=== PATIENT | male | born 1940 | race Caucasian/White ===

== ENCOUNTER → 2019-01-26 | Outpatient (CLI) | payer OTHER ==
--- NOTE | 2019-01-26 09:18 | PCVCIMAG ---
APPROVED REPORT Study performed: 01/26/2019 07:55:03 EXAM: Comprehensive 2D, Doppler, and color-flow Echocardiogram Patient Location: Echo lab Room #: 3Status: routine BSA: 1.89 HR: 52 bpmBP: 120/64 mmHg Rhythm: NSR Other Information Study Quality: Good Indications Near Syncope SVT 2D Dimensions IVSd: 9.84 (7-11mm)LVOT Diam: 20.00 (18-24mm) LVDd: 39.38 mm PWd: 10.55 (7-11mm)Ascending Ao: 31.08 (22-36mm) LVDs: 28.26 (25-40mm) Left Atrium: 37.40 (27-40mm) Aortic Root: 30.09 mm LV Single Plane 4CH: 49.87 % LV Single Plane 2CH: 54.61 % Biplane EF: 53.3 % Volumes Left Atrial Volume (Systole) Single Plane 4CH: 50.03 mLSingle Plane 2CH: 65.25 mL LA ESV Index: 31.00 mL/m2 Aortic Valve AoV Peak Bebeto.: 1.13 m/s AO Peak Gr.: 5.13 mmHgLVOT Max P.40 mmHg LVOT Max V: 0.92 m/s NISHA Vmax: 2.67 cm2 Mitral Valve E/A Ratio: 1.3 MV Decel. Time: 254.07 ms MV E Max Bebeto.: 0.64 m/s MV A Bebeto.: 0.50 m/s IVRT: 73.82 ms TDI E/Lateral E': 8.00E/Medial E': 9.14 Medial E' Bebeto.: 0.07 m/s Lateral E' Bebeto.: 0.08 m/s Pulmonary Valve PV Peak Bebeto.: 0.79 m/sPV Peak Gr.: 2.50 mmHg Pulmonary Vein P Vein S: 0.62 m/sP Vein A: 0.22 m/s P Vein D: 0.47 m/sP Vein A Dur.: 101.5 msec P Vein S/D Ratio: 1.32 Tricuspid Valve TR Peak Bebeto.: 2.29 m/sRAP Estimate: 7.00 mmHg TR Peak Gr.: 20.94 mmHg PA Pressure: 28.00 mmHg Left Ventricle The left ventricle is normal size. There is normal LV segmental wall motion. There is normal left ventricular wall thickness. Left ventricular systolic function is normal. The left ventricular ejection fraction is within the normal range. LVEF is 50-55%. The left ventricular diastolic function is normal. Right Ventricle The right ventricle is normal size. The right ventricular systolic function is normal. Atria The left atrium size is normal. Right atrium is dilated. Aortic Valve The aortic valve is mildly sclerotic Trace aortic regurgitation. There is no aortic valvular stenosis. Mitral Valve The mitral valve is normal in structure. Mild mitral regurgitation. No evidence of mitral valve stenosis. Tricuspid Valve The tricuspid valve is normal in structure. Mild tricuspid regurgitation. Pulmonary artery pressure is 28 mmHg. Pulmonic Valve The pulmonary valve is normal in structure. Trace to mild pulmonic regurgitation. Great Vessels The aortic root is normal in size. IVC is normal in size and collapses >50% with inspiration. Pericardium There is no pericardial effusion. <Conclusion> Left ventricular systolic function is normal. There is normal LV segmental wall motion. LVEF is 50-55%. Normal diastolic function Right atrium is dilated. The aortic valve is mildly sclerotic, no stenosis. Trace aortic regurgitation. The mitral valve is normal in structure. Mild mitral regurgitation. Mild tricuspid regurgitation. Pulmonary artery pressure of 28 mmHg. There is no pericardial effusion.
== END | disposition home or self-care (01) ==
LOC: PCVCIMAG 08:00
PROVIDERS: ATTEND Internal Medicine Cardiovascular Disease
DX: I08.1 Rheumatic disorders of both mitral and tricuspid valves (principal); R55 Syncope and collapse; E78.5 Hyperlipidemia, unspecified; K51.019 Ulcerative (chronic) pancolitis with unspecified complications
CPT/HCPCS: 93306

== ENCOUNTER → 2019-08-25 | Outpatient (CLI) | payer OTHER ==
[~2019-08-25] MED LIST: REGADENOSON 0.4 MG/5 ML DISP.SYRIN. IV ONE
--- NOTE | 2019-08-26 09:48 | PCVCIMAG ---
APPROVED REPORT Imaging Protocol: Rest Tc-99m/Stress Tc-99m 1 day Study performed: 08/25/2019 13:35:58 Indication: Chest pain, Near Syncope, SVT Patient Location: Out-Patient Stress Nurse: Diana Schulte RN, Luisa Andrade RN HI Tech:Krystal LUIS EDUARDO WagnerMT Ht: 5 ft 10 in Wt: 158 lbs BSA: 1.89 m2 HR: 66 bpm BP: 184/84 mmHg BMI: 22.66 Rhythm: Sinus Rhythm, Incomplete RBBB Medical History Medical History: Hyperlipidemia, Former Smoker Medications: Aspirin, Metoprolol Allergies: Imuran Cardiac Risk Factors: Age Pretest Chest Pain Characteristics: No chest pain Meds Held (24 hrs): Metoprolol Resting Data Rest SPECT myocardial perfusion imaging was performed in supine position 45 minutes following the intravenous injection of 10.4 mCi of Tc-99m Sestamibi. Time of rest injection: 1300 Date: 08/25/2019 Administration Route: IV Administration Site: Right Arm Pharmacologic Stress Pharmacologic stress test was performed by injecting Regadenoson 0.4 mg IV push over 10-15 seconds immediately followed by the intravenous injection of 34.1 mCi of Tc-99m Sestamibi. Time of stress injection: 1410 Date: 08/25/2019 Administration Route: IV Administration Site: Right Arm Gated Stress SPECT was performed 45 minutes after stress injection. The images were gated to evaluate regional wall motion and calculate left ventricular ejection fraction. Stress Test Details Stress Test: Pharmacologic stress testing performed using 0.4 mg of regadenoson per 5 mL given IV over 10 seconds. Reason for pharmacologic stress test: physical limitation, synocpe and neuropathy. HRMax Heart Rate (APMHR): 141 bpm Resting HR: 66 bpmTarget HR (85% APMHR): 119 bpm Max HR Achieved: 90 bpm % of APMHR: 63 Recovery HR: 81 bpm BP Resting BP: 184/84 mmHg Max BP: 167/81 mmHg Recovery BP: 161/83 mmHg ECG Resting ECG: Sinus Rhythm, Incomplete RBBB Stress ECG: Sinus Rhythm, Incomplete RBBB ST Change: Non-ischemic Arrhythmia: None Recovery ECG: Sinus Rhythm, Incomplete RBBB Clinical Reason for Termination: Completed protocol Stress Symptoms: None Study Quality Study: Good Study Data Post stress, the left ventricular ejection was 67%.. SSS: 0 SRS: 0 SDS: 0 TID = 0.86. Perfusion Normal left ventricular perfusion. Normal perfusion on both the stress and rest images. Wall Motion Normal left ventricular wall motion. Nuclear Conclusion ECG Findings: negative for ischemia Clinical Findings: non-diagnostic Nuclear Findings: negative for ischemia Exercise Capacity: not assessed Left Ventricular Function: normal Risk Study: low This study is of low probability for inducible ischemia or prior infarct. Normal global and segmental LV systolic function.
== END | disposition home or self-care (01) ==
LOC: PCVCIMAG 13:03
PROVIDERS: ATTEND Internal Medicine Cardiovascular Disease
DX: R07.9 Chest pain, unspecified (principal); R55 Syncope and collapse; I47.1 Supraventricular tachycardia; E78.5 Hyperlipidemia, unspecified; K21.9 Gastro-esophageal reflux disease without esophagitis; Z87.891 Personal history of nicotine dependence; Z80.0 Family history of malignant neoplasm of digestive organs; Z88.8 Allergy status to other drugs, medicaments and biological substances
CPT/HCPCS: 78452; 93017; A9500; J2785